=== PATIENT | male | born 1950 | race African-American/Black ===

== ENCOUNTER 2018-01-09 11:21 | Emergency (ER) | payer MEDICARE ==
[~2018-01-09] VITALS: Ht 175.3 cm; Wt 90.0 kg
[2018-01-09 11:23] VITALS: BP 213/95
== END 2018-01-09 14:28 | disposition left against medical advice (07) ==
LOC: ER 12:46
DX: Z53.21 Procedure and treatment not carried out due to patient leaving prior to being seen by health care provider (principal); R53.1 Weakness
CPT/HCPCS: 93005

== ENCOUNTER 2018-01-09 16:51 | Inpatient (IN) | payer MEDICARE ==
[~2018-01-09] VITALS: Ht 182.9 cm; Wt 74.8 kg
[2018-01-09 18:31] LABS: EOSINOPHILS % 0.2 % (0.0-5.0); HEMATOCRIT. 41.7 % (42.0-52.0); HEMOGLOBIN. 14.3 g/dL (14.0-18.0); LYMPHOCYTES % 13.7 % (20.0-50.0); MEAN CORPUSCULAR HEMOGLOBIN 32.9 pg (28.0-32.0); MEAN CORPUSCULAR VOLUME 95.7 fL (80.0-94.0); MEAN PLATELET VOLUME 7.9 fl (7.4-10.4); MONOCYTES % 8.3 % (2.0-8.0); NEUTROPHILS % 76.8 % (40.0-76.0); PLATELET 171 x1000/uL (130-400); RED BLOOD CELL COUNT 4.36 mill/uL (4.7-6.1); RED CELL DISTRIBUTION WIDTH 14.3 % (11.6-14.6)
[2018-01-09 18:37] LABS: D-DIMER 1.5 mg/L FEU (<0.50); INR 1.1; PROTHROMBIN TIME 10.8 sec (9.1-11.1)
[2018-01-09 18:39] LABS: CHLORIDE 97 mEq/L (98-107)
[2018-01-09] MEDS ORDERED: ASPIRIN 325MG EC TABLET PO ONE (21:15)
[2018-01-09] MEDS ORDERED: HYDRALAZINE HCL 50MG TABLET PO ONE (21:45)
[2018-01-09] MEDS ORDERED: IOHEXOL-350 100 ML BOTTLE ONE (22:04)
[2018-01-09] MEDS ORDERED: ONDANSETRON HCL 4MG/2ML INJ IV PRN (23:30)
[2018-01-09] MEDS ORDERED: MAGNESIUM/ALUMINUM HYDROXIDE/SIMETHICONE 30ML UDC PO PRN (23:30)
[2018-01-09] MEDS ORDERED: IPRATROPIUM/ALBUTEROL 0.5-3(2.5)MG/3ML NEB INH PRN (23:30)
[2018-01-09] MEDS ORDERED: HYDROCODONE/ACETAMINOPHEN 5/325MG TABLET PO PRN (23:30)
[2018-01-09] MEDS ORDERED: CLONIDINE 0.1MG TABLET PO PRN (23:30)
[2018-01-09] MEDS ORDERED: DOCUSATE SODIUM 100MG CAPSULE PO PRN (23:30)
[2018-01-09] MEDS ORDERED: ACETAMINOPHEN 325MG TABLET PO PRN (23:30)
[2018-01-10 00:05] LABS: CHLORIDE 97 mEq/L (98-107)
[2018-01-10 04:00] VITALS: BP 172/94
[2018-01-10] MEDS ORDERED: HYDRALAZINE 20MG/ML VIAL IV PRN (05:00)
[2018-01-10 08:00] VITALS: BP 161/79
[2018-01-10] MEDS ORDERED: NIFEDIPINE XL 60MG TAB PO SCH (09:00)
[2018-01-10] MEDS: ASPIRIN 81MG EC TABLET PO SCH (09:16)
[2018-01-10 11:00] LABS: BASOPHILS % 0.8 % (0.0-2.0); EOSINOPHILS % 0.8 % (0.0-5.0); HEMATOCRIT. 41.3 % (42.0-52.0); HEMOGLOBIN. 14.1 g/dL (14.0-18.0); LYMPHOCYTES % 22.6 % (20.0-50.0); MEAN CORPUSCULAR HEMOGLOBIN 32.4 pg (28.0-32.0); MEAN CORPUSCULAR VOLUME 95.1 fL (80.0-94.0); MEAN PLATELET VOLUME 8.8 fl (7.4-10.4); MONOCYTES % 8.3 % (2.0-8.0); NEUTROPHILS % 67.5 % (40.0-76.0); PLATELET 152 x1000/uL (130-400); RED BLOOD CELL COUNT 4.34 mill/uL (4.7-6.1); RED CELL DISTRIBUTION WIDTH 14.3 % (11.6-14.6)
[2018-01-10 11:35] LABS: CREATINE KINASE 267 IU/L (39-308); CREATINE KINASE MB FRACTION 1.2 ng/mL (0.5-3.6); HDL CHOLESTEROL 110 mg/dL (40-59); LDL CHOLESTEROL 136 mg/dL (5-100)
[2018-01-10 12:00] VITALS: BP 150/72
[2018-01-10 15:11] LABS: CREATINE KINASE 268 IU/L (39-308); CREATINE KINASE MB FRACTION 1.2 ng/mL (0.5-3.6)
[2018-01-10] MEDS ORDERED: MAGNESIUM 2 G PREMIX 50 ML IV ONE (15:15)
[2018-01-10 16:00] VITALS: BP 120/70
[2018-01-10] MEDS ORDERED: MAGNESIUM SULFATE 2 GM in DEXTROSE 5% WATER 50 ML IV NR (17:00)
[2018-01-10] MEDS: DILTIAZEM HCL 60MG TABLET PO SCH (17:48)
[2018-01-10 20:00] VITALS: BP 114/65
[2018-01-10] MEDS ORDERED: ATORVASTATIN CALCIUM 20MG TABLET PO SCH (21:00)
[2018-01-11] VITALS: BP 116/61
[2018-01-11] MEDS: DILTIAZEM HCL 60MG TABLET PO SCH ×2 (00:59→06:16)
[2018-01-11 04:00] VITALS: BP 111/61
[2018-01-11 06:05] LABS: BASOPHILS % 0.6 % (0.0-2.0); EOSINOPHILS % 1.5 % (0.0-5.0); HEMATOCRIT. 38.6 % (42.0-52.0); HEMOGLOBIN. 13.1 g/dL (14.0-18.0); LYMPHOCYTES % 31.4 % (20.0-50.0); MEAN CORPUSCULAR HEMOGLOBIN 32.7 pg (28.0-32.0); MEAN PLATELET VOLUME 9.1 fl (7.4-10.4); MONOCYTES % 6.2 % (2.0-8.0); NEUTROPHILS % 60.3 % (40.0-76.0); PLATELET 132 x1000/uL (130-400); RED BLOOD CELL COUNT 4.01 mill/uL (4.7-6.1); RED CELL DISTRIBUTION WIDTH 14.2 % (11.6-14.6)
[2018-01-11 06:12] VITALS: BP 126/63
[2018-01-11 07:09] LABS: CHLORIDE 97 mEq/L (98-107)
[2018-01-11 07:12] LABS: PHOSPHORUS 1.9 mg/dL (2.5-4.9)
[2018-01-11 08:00] VITALS: BP 134/57
[2018-01-11 08:20] LABS: CLARITY URINE CLEAR (CLEAR); COLOR URINE DARK YELLOW (YELLOW); KETONES URINE NEGATIVE (NEGATIVE); LEUKOCYTE ESTERASE URINE TRACE (NEGATIVE); NITRITE URINE NEGATIVE (NEGATIVE); OCCULT BLOOD URINE NEGATIVE (NEGATIVE); PH URINE 8.5 (4.5-8.0); PROTEIN URINE 1+ (NEGATIVE); SPECIFIC GRAVITY URINE 1.024 (1.005-1.030)
[2018-01-11] MEDS: ASPIRIN 81MG EC TABLET PO SCH (09:20)
[2018-01-11 09:34] LABS: *BARBITURATES SCREEN URINE NEGATIVE (NEGATIVE); *BENZODIAZEPINES SCREEN URINE NEGATIVE (NEGATIVE); *COCAINE SCREEN URINE NEGATIVE (NEGATIVE)
[2018-01-11 09:35] LABS: *AMPHETAMINES SCREEN URINE NEGATIVE (NEGATIVE); CANNABINOID URINE SCREEN NEGATIVE (NEGATIVE); METHADONE URINE SCREEN NEGATIVE (NEGATIVE); OPIATES URINE SCREEN NEGATIVE (NEGATIVE); PHENCYCLIDINE URINE SCREEN NEGATIVE (NEGATIVE)
[2018-01-11] MEDS ORDERED: ASPI-1158 PO (09:45)
[2018-01-11] MEDS ORDERED: DILT60TA35 PO (09:45)
[2018-01-11] MEDS ORDERED: ATOR20TA PO (09:45)
== END 2018-01-11 11:00 | disposition home or self-care (01) | DRG 206 ==
LOC: ER 16:51 → EDBEDREQTM 21:24 → EDBEDREQ 21:24 → 7WST 01-10 02:10 → ENRESERV 01-10 02:23
PROVIDERS: ADMIT Internal Medicine; ATTEND Internal Medicine
DX: M94.0 Chondrocostal junction syndrome [Tietze] (principal); I10 Essential (primary) hypertension; E78.5 Hyperlipidemia, unspecified; E83.42 Hypomagnesemia; J44.9 Chronic obstructive pulmonary disease, unspecified; R79.1 Abnormal coagulation profile; Z87.891 Personal history of nicotine dependence
CPT/HCPCS: 36415; 71045; 71275; 80048; 80061; 80305; 82550; 82553; 83735; 84100; 84443; 84484; 85379; 87804; 93005; 93306; 93970; 99285; J0360; J3475; J7050; J7060; Q9967